=== PATIENT | male | born 1970 | race Caucasian/White ===

== ENCOUNTER 2020-09-05 19:10 | Emergency (ER) | payer MEDICAID ==
[~2020-09-05] VITALS: Ht 172.7 cm; Wt 74.8 kg
[2020-09-05 19:12] VITALS: BP 143/98
--- NOTE | 2020-09-05 19:12 | NUR ---
PT [facility]. TAKEN TO BED 2
--- NOTE | 2020-09-05 19:17 | NUR ---
PT STATED "I FEEL BETTER NOW." PATIENT LEFT WITHOUT BEING SEEN BY DR. TELLO. NO FURTHER CARE PROVIDED FOR PATIENT.
[2020-09-05 19:20] VITALS: BP 143/98
--- NOTE | 2020-09-05 19:20 | NUR ---
PATIENT LEFT WITHOUT BEING SEEN BY DR. Botello. NO FURTHER CARE PROVIDED FOR PATIENT.
== END 2020-09-05 19:20 | disposition left against medical advice (07) ==
LOC: MED 19:10
DX: R35.0 Frequency of micturition (principal); Z53.21 Procedure and treatment not carried out due to patient leaving prior to being seen by health care provider